=== PATIENT | male | born 1970 | race Hispanic/Latino ===

== ENCOUNTER 2016-09-27 06:47 | Emergency (ER) | payer OTHER ==
[~2016-09-27] VITALS: Ht 165.1 cm; Wt 70.9 kg
[2016-09-27 06:56] VITALS: BP 154/80; PULSE 72; RESP 18; O2SAT 100
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
[2016-09-27] MEDS ORDERED: Tetracaine 0.5% 4 mL Ophthalmic Solution LEFT_EYE ONE (07:15)
[2016-09-27] MEDS ORDERED: Fluorescein 0.6 mg Ophthalmic Strip ONE (07:16)
[2016-09-27] MEDS ORDERED: Tetracaine 0.5% 4 mL Ophthalmic Solution ONE (07:16)
[2016-09-27] MEDS ORDERED: AMOX-366 PO (10:21)
[2016-09-27] MEDS ORDERED: POLY10DR21 OP (10:24)
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
[2016-09-27 11:49] VITALS: BP 128/80; PULSE 68; RESP 16; O2SAT 98
== END 2016-09-27 11:50 ==
LOC: SED 06:47
DX: S02.80XA Fracture of other specified skull and facial bones, unspecified side, initial encounter for closed fracture (principal); S02.2XXA Fracture of nasal bones, initial encounter for closed fracture; S05.02XA Injury of conjunctiva and corneal abrasion without foreign body, left eye, initial encounter; Y04.0XXA Assault by unarmed brawl or fight, initial encounter; Y93.9 Activity, unspecified; Y92.9 Unspecified place or not applicable; Y99.9 Unspecified external cause status